=== PATIENT | female | born 1975 | race Caucasian/White ===

== ENCOUNTER 2018-10-02 09:06 | Emergency (ER) | payer MEDICAID ==
[~2018-10-02] VITALS: Ht 160 cm; Wt 110.0 kg
[2018-10-02 09:10] VITALS: BP 170/96; PULSE 76; RESP 18; Ht 160 cm; Wt 110.0 kg
[2018-10-02] MEDS ORDERED: ACETAMINOPHEN 325 MG TAB PO ONE (11:00)
[2018-10-02] MEDS ORDERED: LIDOCAINE 1% (MDV) 20 ML INJ SC ONE (11:00)
[2018-10-02] MEDS ORDERED: IBUP-1542 PO (11:12)
--- NOTE | 2018-10-02 11:15 | ERD ---
ER Documentation Chief Complaint Chief Complaint left 4th finger lac with knife today HPI 43-year-old female presents with left fourth digit laceration was sustained with a knife in the kitchen today. She has no restricted range of motion weakness. Tetanus is up-to-date. ROS All systems reviewed and are negative except as per history of present illness. Medications Home Meds Active Scripts Ibuprofen* (Motrin*) 600 Mg Tab, 600 MG PO Q6, #15 TAB Prov:NAHOMY GUEVARA MD 10/02/18 Allergies Allergies: Coded Allergies: No Known Allergy (Unverified , 10/02/18) PMhx/Soc Medical and Surgical Hx: pt denies Medical Hx, pt denies Surgical Hx Hx Alcohol Use: No Hx Substance Use: No Hx Tobacco Use: No Smoking Status: Never smoker Physical Exam Vitals Vital Signs Date Temp Pulse Resp B/P (MAP) Pulse Ox O2 O2 Flow FiO2 Time Delivery Rate 10/02/18 97.7 76 18 170/96 100 09:10 (120) Physical Exam Const: No acute distress Head: Atraumatic Eyes: Normal Conjunctiva ENT: Normal External Ears, Nose and Mouth. Neck: Full range of motion. No meningismus. Resp: Clear to auscultation bilaterally Cardio: Regular rate and rhythm, no murmurs Abd: Soft, non tender, non distended. Normal bowel sounds Skin: No petechiae or rashes Back: No midline or flank tenderness Ext: No cyanosis, or edema left fourth digit proximally 1.5 cm laceration around the crease on the flexor surface of the left fourth digit. No restricted range of motion weakness or evidence of tendon laceration. Minimal bleeding without erythema, discharge. Cap refill less than 2 seconds. Neur: Awake and alert Psych: Normal Mood and Affect Results 24 hrs Current Medications Medications Dose Sig/Antoinette Start Time Status Last (Trade) Ordered Route PRN Stop Time Admin Dose Reason Admin 650 mg ONCE ONCE 10/02/18 DC Acetaminophen PO 11:00 10/02/18 (Tylenol 11:01 Tab) Lidocaine 20 ml ONCE ONCE 10/02/18 DC (Xylocaine SC 11:00 10/02/18 1% (Mdv) 20 11:01 ml) Procedures/MDM Patient presents with laceration left fourth digit without signs of ischemia, tendon laceration, deficits, infection. Procedure note-patient was given Tylenol for pain. Left finger laceration was irrigated copiously with normal saline. 2 cc lidocaine was used to perform a digital block. Anesthesia was obtained. 5 4-0 nylon sutures were used to approximate the wound. Patient tolerated procedure well and wound was dressed. We discharged home with recommendations for 2-day wound check in 10 days suture removal. Should return sooner for fevers, redness, new worsening symptoms. The patient was stable with no new complaints during the ER course. Clinically, there is no current evidence to suggest meningitis, sepsis, acute abdomen, pneumonia, stroke, acute coronary syndrome, pulmonary embolism, aortic dissection or any other emergent condition appearing to require further evaluation or hospitalization. Patient counseled regarding my diagnostic impression and care plan. Prior to discharge all questions answered. Pt agrees with treatment plan and understands strict return precautions. Pt is instructed to follow up with primary care provider within 24-48 hours. Precautionary instructions provided including instructions to return to the ER if not improving or for any worsening or changing symptoms or concerns. Disclaimer: Inadvertent spelling and grammatical errors are likely due to EHR/dictation software use and do not reflect on the overall quality of patient care. Also, please note that the electronic time recorded on this note does not necessarily reflect the actual time of the patient encounter. Departure Diagnosis: Primary Impression: Laceration Condition: Stable Patient Instructions: Laceration, Hand Referrals: NO PRIMARY,CARE PHYSICIAN (PCP) Additional Instructions: 2-day wound check in 10 days suture removal. Cheque 2 bosch para cheque para infeccion. cheque 10 bosch para saca los puntos / grapas. NAHOMY GUEVARA MD Oct 02, 2018 11:15
== END 2018-10-02 11:48 | disposition home or self-care (01) ==
LOC: FTE 09:06
DX: S61.215A Laceration without foreign body of left ring finger without damage to nail, initial encounter (principal); W26.0XXA Contact with knife, initial encounter; Y92.000 Kitchen of unspecified non-institutional (private) residence as the place of occurrence of the external cause
CPT/HCPCS: 12001; Z7502; Z7610